=== PATIENT | female | born 1990 | race African-American/Black ===

== ENCOUNTER 2016-06-12 02:26 | Emergency (ER) | payer OTHER ==
[~2016-06-12] VITALS: Ht 170.2 cm; Wt 59.4 kg
[2016-06-12 03:09] LABS: HEMATOCRIT 35.2 % (36.0-46.0); MCHC 33.2 G/DL (30.0-36.0); MCV 93.4 FL (83-99); MEAN PLAT.VOLUME 9.3 uM^3 (9.5-12.4); PLATELET COUNT 214 K/uL (156-360); RBC DIS.WIDTH-CV 14.5 % (11.8-14.6); RBC DIS.WIDTH-SD 49.2 % (39-53); RED BLOOD COUNT 3.77 M/uL (3.80-5.20); WHITE BLOOD COUNT 8.4 K/uL (4.1-10.2)
[2016-06-12 03:20] LABS: CHLORIDE 106 mEq/L (99-109); POTASSIUM 3.7 mEq/L (3.7-5.4); SODIUM 136 mEq/L (136-147)
[2016-06-12 03:23] LABS: GLUCOSE 85 mg/dL (70-99)
[2016-06-12 03:24] LABS: ANION GAP 7 MEQ/L (2-14)
[2016-06-12 03:25] LABS: TOTAL BILIRUBIN 0.2 mg/dL (0.0-1.0)
[2016-06-12 03:26] LABS: ALKALINE PHOSPHATASE 56 IU/L (3-129); GFR ESTIMATE (CALCULATED) > 59 mL/min/
[2016-06-12 03:27] LABS: UREA NITROGEN (BUN) 13 mg/dL (9-23)
[2016-06-12 03:30] LABS: LIPASE 57 U/L (1.0-51.0)
[2016-06-12 03:37] LABS: QUANTITATIVE HCG 3896.6 MIU/ML
[2016-06-12 03:50] LABS: ADD MIUA? YES; BILIRUBIN NEGATIVE; BLOOD NEGATIVE; COLOR YELLOW ((YELLOW)); GLUCOSE (STRIP) NEGATIVE; KETONES NEGATIVE; LEUKOCYTES LARGE; NITRITE NEGATIVE; PROTEIN (STRIP) NEGATIVE; SPECIFIC GRAVITY 1.012 (1.000-1.030); UROBILINOGEN 0.2 MG/DL (0.2-1.0)
[2016-06-12 04:25] LABS: BACTERIA 1+ /HPF; CASTS NONE SEEN /LPF; CRYSTALS NONE SEEN; EPITHELIAL CELLS 2+ /HPF; MUCUS NONE SEEN /LPF; UCUL ADDED? NO; WHITE BLOOD CELLS 15-20 /HPF (0-5)
[2016-06-12] MEDS ORDERED: MACROBID100 MG PO (05:50)
[2016-06-12 06:08] VITALS: BP 138/81
== END 2016-06-12 06:10 | disposition home or self-care (01) ==
LOC: EME 02:26
DX: O26.892 Other specified pregnancy related conditions, second trimester (principal); R10.11 Right upper quadrant pain; O23.42 Unspecified infection of urinary tract in pregnancy, second trimester; Z3A.25 25 weeks gestation of pregnancy
CPT/HCPCS: 76705; 76815; 80053; 81003; 83690; 84702; 85027; 99281; 99284

== ENCOUNTER 2016-10-01 07:34 | Inpatient (IN) | payer OTHER ==
[2016-10-01] VITALS (24 sets, daily range): BP systolic 99–133; BP diastolic 56–88
[~2016-10-01] VITALS: Ht 170.2 cm; Wt 63.5 kg
[~2016-10-01 07:34] MED LIST: MACROBID100 MG PO
[2016-10-01] MEDS ORDERED: PRENATAL TABLE1 EAC3 PO (07:50)
[2016-10-01] MEDS ORDERED: ZOFRAN4 MG PO (07:50)
[2016-10-01 08:39] LABS: EOSINOPHIL (%) 0.3 % (0-5); HEMATOCRIT 36.6 % (36.0-46.0); IMMATURE GRANULOCYTE (%) 0.5 % (0.0-0.7); INSTRUMENT ABS NEUTROPHIL CT 3.5 K/uL; LYMPHOCYTE COUNT 1.8 K/uL (1.0-2.8); MCH 31.6 PG (29.0-34.0); MCHC 35.2 G/DL (30.0-36.0); MCV 89.7 FL (83-99); MEAN PLAT.VOLUME 10.6 uM^3 (9.5-12.4); MONOCYTE (%) 9.1 % (3-12); MONOCYTE COUNT 0.5 K/uL (0-0.8); NEUTROPHIL (%) 58.7 % (45-76); NEUTROPHIL COUNT 3.5 K/uL (1.8-6.4); PLATELET COUNT 155 K/uL (156-360); RBC DIS.WIDTH-CV 13.3 % (11.8-14.6); RBC DIS.WIDTH-SD 43.5 % (39-53); RED BLOOD COUNT 4.08 M/uL (3.80-5.20)
[2016-10-02] VITALS (12 sets, daily range): BP systolic 108–133; BP diastolic 59–85
[2016-10-03 06:59] LABS: EOSINOPHIL (%) 0.3 % (0-5); HEMATOCRIT 31.9 % (36.0-46.0); IMMATURE GRANULOCYTE (%) 0.5 % (0.0-0.7); IMMATURE GRANULOCYTE COUNT 0.1 K/uL; INSTRUMENT ABS NEUTROPHIL CT 9.1 K/uL; MCH 31.3 PG (29.0-34.0); MCHC 34.2 G/DL (30.0-36.0); MCV 91.7 FL (83-99); MEAN PLAT.VOLUME 10.8 uM^3 (9.5-12.4); MONOCYTE (%) 5.6 % (3-12); MONOCYTE COUNT 0.7 K/uL (0-0.8); NEUTROPHIL (%) 70.5 % (45-76); NEUTROPHIL COUNT 9.1 K/uL (1.8-6.4); PLATELET COUNT 125 K/uL (156-360); RBC DIS.WIDTH-CV 13.5 % (11.8-14.6); RBC DIS.WIDTH-SD 44.3 % (39-53); RED BLOOD COUNT 3.48 M/uL (3.80-5.20)
[2016-10-03 07:15] VITALS: BP 114/71
[2016-10-03 11:20] VITALS: BP 121/72
[2016-10-03 15:30] VITALS: BP 117/63
[2016-10-03 19:58] VITALS: BP 108/74
[2016-10-03 22:50] VITALS: BP 105/65
[2016-10-04 03:14] VITALS: BP 116/67
[2016-10-04 07:32] VITALS: BP 116/76
[2016-10-04] MEDS ORDERED: ENDOCET 5-3251 EACH PO (08:23)
[2016-10-04] MEDS ORDERED: IBUPROFEN800 MG PO (08:23)
== END 2016-10-04 10:50 | disposition home or self-care (01) | DRG 766 ==
LOC: LDRP-OP → 2WEST 07:35 → LDRP-OP 12:18 → 2WEST 10-02 00:52 → LDRP-OP 10-25 20:46
PROVIDERS: Obstetrics & Gynecology
DX: O62.0 Primary inadequate contractions (principal); O62.1 Secondary uterine inertia; O33.9 Maternal care for disproportion, unspecified; O69.81X0 Labor and delivery complicated by cord around neck, without compression, not applicable or unspecified; O48.0 Post-term pregnancy; Z3A.41 41 weeks gestation of pregnancy; Z37.0 Single live birth
CPT/HCPCS: 85025; 86900; 86901; 88307; C1755; G0378; J0595; J0690; J1100; J1200; J2270; J2274; J2405; J2765; J3010; J7120